=== PATIENT | female | born 1930 | race American Indian/Alaskan Native ===

== ENCOUNTER 2017-07-26 17:38 | Inpatient (IN) | payer MEDICARE ==
[2017-07-26 18:12] VITALS: BMI 27.8
--- NOTE | 2017-07-26 19:32 | C.PDOC ---
History Of Present Illness 87 year old female presents to the ED c/o weakness, feeling tired, SOB with exertion that has been going on for the past 2 days. Patient in the ED is speaking in full sentences. Patient denies fever, chills, nausea, vomit, diarrhea, recent travel, CP, palpitations. Time Seen by Provider: 07/26/17 19:32 Chief Complaint (Nursing): Weakness/Neurological Deficit History Per: Patient History/Exam Limitations: no limitations Onset/Duration Of Symptoms: Days Current Symptoms Are (Timing): Still Present Activity At Onset Of Symptoms: Exertional Activity Associated Symptoms Preceding Syncopal Episode: No Predromal Symptoms (Sudden Onset) Seizure Or Post-ictal Symptoms: None Fall Associated With With Symptoms: No Severity: None Recent travel outside of the [place]: No Additional History Per: Patient Past Medical History Reviewed: Historical Data, Nursing Documentation, Vital Signs Vital Signs: Last Vital Signs Temp 97.9 F 07/27/17 00:40 Pulse 82 07/27/17 00:40 Resp 20 07/27/17 00:40 BP 137/65 07/27/17 00:40 Pulse Ox 98 07/27/17 00:40 - Medical History PMH: HTN, Hypercholesterolemia Denies: Chronic Kidney Disease Surgical History: Coronary Stent - [facility] Procedures CORONAR ARTERIOGR-2 CATH (09/01/06) CORONARY ARTERY STENT INSERTION [id number] (09/01/06) ENDOSC POLYPECTOMY OF LG INTEST (12/07/12) INJECT ANTICOAGULANT (09/06/06) INSERTION OF ONE VASCULAR STENT (09/06/06) INSRT OF DRUG-ELUTING CORON ARTERY STENTS(S) (09/06/06) LEFT HEART CARDIAC CATH (08/29/06) LT HEART ANGIOCARDIOGRAM (08/29/06) PERC TRANSLUMINAL CORON ANGIOPLASTY PTCA OR CORON ATHERECT (09/06/06) PROCEDURE ON SINGLE VESSEL (09/06/06) Family History: States: No Known Family Hx - Social History Hx Tobacco Use: No Hx Alcohol Use: No Hx Substance Use: No - Immunization History Hx Tetanus Toxoid Vaccination: No Hx Influenza Vaccination: No Hx Pneumococcal Vaccination: No Review Of Systems Constitutional: Negative for: Fever, Chills Cardiovascular: Negative for: Chest Pain Respiratory: Positive for: SOB with Excertion Gastrointestinal: Negative for: Nausea, Vomiting, Abdominal Pain Neurological: Positive for: Weakness. Negative for: Headache, Dizziness Physical Exam - Physical Exam Appears: Non-toxic, No Acute Distress Skin: Warm, Dry Head: Normacephalic Eye(s): bilateral: Normal Inspection Nose: No Discharge Oral Mucosa: Moist Neck: Supple Chest: Symmetrical Cardiovascular: Rhythm Irregular (irregularly irregular), No Murmur Respiratory: No Rales, No Rhonchi, No Wheezing Gastrointestinal/Abdominal: Soft, No Tenderness, No Guarding, No Rebound Extremity: Normal ROM, No Tenderness, No Swelling Neurological/Psych: Oriented x3 Gait: Steady ED Course And Treatment - Laboratory Results Result Diagrams: 07/26/17 19:45 07/26/17 19:45 ECG: Interpreted By Me, Viewed By Me ECG Rhythm: Atrial Fibrillation, Nonspecific Changes O2 Sat by Pulse Oximetry: 99 (ON RA) Pulse Ox Interpretation: Normal - Radiology CXR: Interpreted by Me, Viewed By Me CXR Interpretation: No: Infiltrates, Fracture, Pnemothorax Progress Note: Plan: - VBG. - EKG. - Labs. - CXR. - UA Disposition Counseled Patient/Family Regarding: Studies Performed, Diagnosis - Disposition Disposition: HOSPITALIZED Disposition Time: 19:32 Condition: GOOD - Clinical Impression Clinical Impression: New onset a-fib, CHF (congestive heart failure) - Scribe Statement The provider has reviewed the documentation as recorded by the Scribe Chirag Valero All medical record entries made by the Scribe were at my direction and personally dictated by me. I have reviewed the chart and agree that the record accurately reflects my personal performance of the history, physical exam, medical decision making, and the department course for this patient. I have also personally directed, reviewed, and agree with the discharge instructions and disposition.
[2017-07-26 19:48] LABS: BASO % 0.4 % (0.0-2.0); EOS % 0.5 % (0.0-4.0); HEMOGLOBIN 11.1 g/dL (11.0-16.0); LYMPH # 2.8 K/uL (1.0-4.3); MEAN CELL VOLUME 83.9 fL (81.0-99.0); MEAN CORPUSCULAR HEMOGLOBIN 28.4 pg (27.0-31.0); MEAN CORPUSCULAR HGB CONC 33.8 g/dL (33.0-37.0); MEAN PLATELET VOLUME 8.4 fL (7.2-11.7); MONO # 1.1 K/uL (0.0-0.8); MONO % 12.1 % (0.0-10.0); RBC 3.9 Mil/uL (3.80-5.20); RED CELL DISTRIBUTION WIDTH 15.3 % (11.5-14.5); WHITE BLOOD COUNT 8.9 K/uL (4.8-10.8)
[2017-07-26 19:57] LABS: INR 1.1; PROTHROMBIN TIME 12.3 SECONDS (9.7-12.2)
[2017-07-26 20:00] LABS: CALCIUM 8.1 mg/dl (8.6-10.4); GFR AFRICAN-AMERICAN 37; GFR NON-AFRICAN AMERICAN 30
[2017-07-26 20:01] LABS: ALB/GLOB RATIO 0.8 (1.0-2.1); ALBUMIN 3.6 g/dL (3.5-5.0); ALT/SGPT < 6 U/L (9-52); AST/SGOT 37 U/L (14-36); BLOOD UREA NITROGEN 35 mg/dL (7-17)
[2017-07-26 20:01] LABS: VENOUS BLOOD GAS BASE EXCESS 0.3 mmol/L (0.0-2.0); VENOUS BLOOD GAS PCO2 42 mmHg (40-60); VENOUS BLOOD GAS PO2 20 mm/Hg (30-55); VENOUS BLOOD PH 7.39 (7.32-7.43)
[2017-07-26 20:09] LABS: B-TYPE NATRIURETIC PEPTIDE 5480 pg/mL (0-900)
[2017-07-26 22:57] VITALS: RESP 20
[2017-07-27 00:59] LABS: URINE BILIRUBIN NEGATIVE (NEGATIVE); URINE CLARITY Hazy (Clear); URINE COLOR YELLOW (YELLOW); URINE GLUCOSE (UA) Normal (Normal)
[2017-07-27 01:00] LABS: URINE BLOOD 1+ (NEGATIVE); URINE PROTEIN 1+ mg/dL (NEGATIVE)
[2017-07-27 01:02] LABS: SQUAMOUS EPITHIAL 11 /hpf (0-5); URINE BACTERIA MANY (<OCC); URINE LEUKOCYTE ESTERASE 3+ Leu/uL (Negative)
[2017-07-27] MEDS ORDERED: Pneumococcal 23-Valent Vaccine IM ONE (03:10)
[2017-07-27 03:17] LABS: URINE BILIRUBIN NEGATIVE (NEGATIVE); URINE CLARITY Turbid (Clear); URINE COLOR YELLOW (YELLOW); URINE GLUCOSE (UA) NEGATIVE (Normal)
[2017-07-27 03:18] LABS: SQUAMOUS EPITHIAL 3 /hpf (0-5); URINE BACTERIA MANY (<OCC); URINE BLOOD 1+ (NEGATIVE); URINE LEUKOCYTE ESTERASE 3+ Leu/uL (Negative); URINE PROTEIN 1+ mg/dL (NEGATIVE); URINE UROBILINOGEN Normal mg/dL (0.2-1.0)
[2017-07-27 06:36] LABS: ALB/GLOB RATIO 0.8 (1.0-2.1); ALBUMIN 3.3 g/dL (3.5-5.0); CALCIUM 8.8 mg/dl (8.6-10.4); CK-MB 1.36 ng/mL (0.0-3.38)
[2017-07-27 06:37] LABS: TROPONIN I 0.031 ng/mL (0.00-0.120)
--- NOTE | 2017-07-27 06:55 | RAD ---
Chest x-ray single frontal view History: Shortness of breath. Comparison: 08/29/2015 Findings: Biapical pleural thickening with upper lobe granulomatous changes. Small nodular density at the right lung apex. Patchy increased markings at the right infrahilar region. Venous congestion. Right hilar prominence. Calcification at the aortic knob. Degenerative changes in the spine shoulders. Impression: Biapical pleural thickening with upper lobe granulomatous changes. Small nodular density at the right lung apex. Patchy increased markings at the right infrahilar region. Venous congestion. Right hilar prominence. Calcification at the aortic knob.
[2017-07-27 07:23] LABS: HEMOGLOBIN 10.5 g/dL (11.0-16.0); MEAN CELL VOLUME 84.1 fL (81.0-99.0); MEAN CORPUSCULAR HEMOGLOBIN 28.2 pg (27.0-31.0); MEAN CORPUSCULAR HGB CONC 33.5 g/dL (33.0-37.0); MEAN PLATELET VOLUME 8.2 fL (7.2-11.7); RBC 3.72 Mil/uL (3.80-5.20); RED CELL DISTRIBUTION WIDTH 15.4 % (11.5-14.5); WHITE BLOOD COUNT 8.2 K/uL (4.8-10.8)
--- NOTE | 2017-07-27 09:35 | CP.PCM.HP ---
History of Present Illness - History of Present Illness History of Present Illness: This is an 87 y/o female well-known to me with history of HTN and CAD s/p PCI, who was seen in the office complaining of severe dizziness, weakness and fatigue that started 2 days prior to admission. She claims that she woke up 2 days ago with palpitations and severe dizziness. Since then she has not felt better and had also noted fatigue and weakness. In the office she was found to be with new-onset atrial fibrillation with rapid ventricular response hence she was advised to go to the ER for further evaluation and management. She denies any chest pain, orthopnea or edema. No abdominal pain, nausea, vomiting or bleeding noted anywhere. She denies any fever, cold or cough but does admit that she feels easily short of breath with minimal exertion. Present on Admission - Present on Admission Any Indicators Present on Admission: No Review of Systems - Constitutional Constitutional: Fatigue, Malaise, Weakness - EENT Eyes: As Per HPI Ears: As Per HPI Nose/Mouth/Throat: As Per HPI - Cardiovascular Cardiovascular: Dyspnea on Exertion, Irregular Heart Rhythm, Lightheadedness, Palpitations, Rapid Heart Rate - Respiratory Respiratory: Dyspnea on Exertion - Neurological Neurological: Dizziness, Weakness Past Patient History - Past Medical History & Family History Past Medical History?: Yes - Past Social History Smoking Status: Never Smoked Alcohol: None Drugs: Denies Home Situation {Lives}: Alone - CARDIAC Hx Cardiac Disorders: Yes (Hx of CAD, s/p PCI ) Hx Cardia Arrhythmia: Yes Hx Hypercholesterolemia: Yes Hx Hypertension: Yes - NEUROLOGICAL Hx Neurological Disorder: Yes Hx Dizziness: Yes Hx Transient Ischemic Attacks (TIA): Yes (Has known carotid artery stenosis) Other/Comment: history of carotid artery stenosis - HEENT Hx HEENT Problems: No - RENAL Hx Chronic Kidney Disease: No - ENDOCRINE/METABOLIC Hx Endocrine Disorders: Yes Hx Diabetes Mellitus Type 2: Yes - HEMATOLOGICAL/ONCOLOGICAL Hx Blood Disorders: No - INTEGUMENTARY Hx Dermatological Problems: No - MUSCULOSKELETAL/RHEUMATOLOGICAL Hx Musculoskeletal Disorders: No Hx Arthritis: Yes Hx Falls: No - GASTROINTESTINAL Hx Gastrointestinal Disorders: Yes Hx Constipation: Yes Hx Diarrhea: Yes Hx Nausea: Yes - GENITOURINARY/GYNECOLOGICAL Hx Genitourinary Disorders: Yes Hx Urinary Tract Infection: Yes - PSYCHIATRIC Hx Psychophysiologic Disorder: No Hx Substance Use: No - SURGICAL HISTORY Hx Cardiac Catheterization: Yes Hx Coronary Stent: Yes - ANESTHESIA Hx Anesthesia: Yes Hx Anesthesia Reactions: No Meds Allergies/Adverse Reactions: Allergies Allergy/AdvReac Type Severity Reaction Status Date / Time Penicillins Allergy Verified 08/29/15 19:11 Physical Exam - Constitutional Appears: No Acute Distress - Head Exam Head Exam: NORMAL INSPECTION - Eye Exam Eye Exam: Normal appearance, PERRL - ENT Exam ENT Exam: Mucous Membranes Moist, Normal Exam - Respiratory Exam Respiratory Exam: Clear to Auscultation Bilateral, NORMAL BREATHING PATTERN - Cardiovascular Exam Cardiovascular Exam: Irregular Rhythm, +S1, +S2 - GI/Abdominal Exam GI & Abdominal Exam: Normal Bowel Sounds, Soft - Rectal Exam Rectal Exam: Deferred - Extremities Exam Extremities exam: Positive for: normal inspection - Neurological Exam Neurological exam: Alert, Normal Gait, Oriented x3 - Psychiatric Exam Psychiatric exam: Normal Affect, Normal Mood - Skin Skin Exam: Dry, Intact, Normal Color, Warm Results - Vital Signs Recent Vital Signs: Last Vital Signs Temp 98.0 F 07/27/17 08:46 Pulse 75 07/27/17 08:46 Resp 20 07/27/17 08:46 BP 123/70 07/27/17 08:46 Pulse Ox 98 07/27/17 08:46 - Labs Result Diagrams: 07/27/17 04:00 07/27/17 03:00 Labs: Laboratory Results - last 24 hr 07/26/17 07/26/17 07/26/17 19:45 19:45 19:45 WBC 8.9 RBC 3.90 Hgb 11.1 Hct 32.7 L MCV 83.9 D MCH 28.4 MCHC 33.8 RDW 15.3 H Plt Count 340 D MPV 8.4 Neut % (Auto) 56.0 Lymph % (Auto) 31.0 [place] % (Auto) 12.1 H Eos % (Auto) 0.5 Baso % (Auto) 0.4 Neut # (Auto) 5.0 Lymph # (Auto) 2.8 [place] # (Auto) 1.1 H Eos # (Auto) 0.0 Baso # (Auto) 0.0 PT 12.3 H INR 1.1 APTT 27 pO2 VBG pH VBG pCO2 VBG HCO3 VBG Total CO2 VBG O2 Sat (Calc) VBG Base Excess VBG Potassium Glucose Lactate Sodium 140 Potassium 4.5 Chloride 104 Carbon Dioxide 21 L Anion Gap 20 BUN 35 H Creatinine 1.6 H Est GFR ( Amer) 37 Est GFR (Non-Af Amer) 30 POC Glucose (mg/dL) Random Glucose 112 H Calcium 8.1 L Total Bilirubin 1.1 AST 37 H ALT < 6 L D Alkaline Phosphatase 65 Total Creatine Kinase CK-MB (Mass) Troponin I 0.0320 NT-Pro-B Natriuret Pep 5480 H Total Protein 8.4 H Albumin 3.6 Globulin 4.8 H Albumin/Globulin Ratio 0.8 L TSH 3rd Generation 1.44 Venous Blood Potassium Urine Color Urine Clarity Urine pH Ur Specific [place] Urine Protein Urine Glucose (UA) Urine Ketones Urine Blood Urine Nitrate Urine Bilirubin Urine Urobilinogen Ur Leukocyte Esterase Urine WBC (Auto) Urine RBC (Auto) Ur Squamous Epith Cells Ur Transition Epith Cell Urine Bacteria Hyaline Casts 07/26/17 07/26/17 07/27/17 19:57 20:01 00:30 WBC RBC Hgb Hct MCV MCH MCHC RDW Plt Count MPV Neut % (Auto) Lymph % (Auto) [place] % (Auto) Eos % (Auto) Baso % (Auto) Neut # (Auto) Lymph # (Auto) [place] # (Auto) Eos # (Auto) Baso # (Auto) PT INR APTT pO2 20 L VBG pH 7.39 VBG pCO2 42 VBG HCO3 23.4 VBG Total CO2 26.7 VBG O2 Sat (Calc) 34.6 L VBG Base Excess 0.3 VBG Potassium 3.0 L Glucose 109 H Lactate 1.3 Sodium 142.0 Potassium Chloride 107.0 Carbon Dioxide Anion Gap BUN Creatinine Est GFR ( Amer) Est GFR (Non-Af Amer) POC Glucose (mg/dL) 110 Random Glucose Calcium Total Bilirubin AST ALT Alkaline Phosphatase Total Creatine Kinase CK-MB (Mass) Troponin I NT-Pro-B Natriuret Pep Total Protein Albumin Globulin Albumin/Globulin Ratio TSH 3rd Generation Venous Blood Potassium 3.0 L Urine Color Yellow Urine Clarity Hazy Urine pH 5.0 Ur Specific [place] 1.011 Urine Protein 1+ H Urine Glucose (UA) Normal Urine Ketones Negative Urine Blood 1+ H Urine Nitrate Negative Urine Bilirubin Negative Urine Urobilinogen 2.0 H Ur Leukocyte Esterase 3+ H Urine WBC (Auto) 394 H Urine RBC (Auto) 15 H Ur Squamous Epith Cells 11 H Ur Transition Epith Cell 1 Urine Bacteria Many H Hyaline Casts 11-20 H 07/27/17 07/27/17 07/27/17 02:38 03:00 04:00 WBC 8.2 RBC 3.72 L Hgb 10.5 L Hct 31.3 L MCV 84.1 MCH 28.2 MCHC 33.5 RDW 15.4 H Plt Count 276 MPV 8.2 Neut % (Auto) Lymph % (Auto) [place] % (Auto) Eos % (Auto) Baso % (Auto) Neut # (Auto) Lymph # (Auto) [place] # (Auto) Eos # (Auto) Baso # (Auto) PT INR APTT pO2 VBG pH VBG pCO2 VBG HCO3 VBG Total CO2 VBG O2 Sat (Calc) VBG Base Excess VBG Potassium Glucose Lactate Sodium 143 Potassium 3.5 L Chloride 105 Carbon Dioxide 24 Anion Gap 18 BUN 40 H Creatinine 1.5 H Est GFR ( Amer) 40 Est GFR (Non-Af Amer) 33 POC Glucose (mg/dL) Random Glucose 141 H Calcium 8.8 Total Bilirubin 0.4 AST 22 ALT 12 Alkaline Phosphatase 71 Total Creatine Kinase 31 CK-MB (Mass) 1.36 Troponin I 0.0310 NT-Pro-B Natriuret Pep Total Protein 7.4 Albumin 3.3 L Globulin 4.1 H Albumin/Globulin Ratio 0.8 L TSH 3rd Generation Venous Blood Potassium Urine Color Yellow Urine Clarity Turbid Urine pH 5.0 Ur Specific [place] 1.006 Urine Protein 1+ H Urine Glucose (UA) Negative Urine Ketones Negative Urine Blood 1+ H Urine Nitrate Positive H Urine Bilirubin Negative Urine Urobilinogen Normal Ur Leukocyte Esterase 3+ H Urine WBC (Auto) 2740 H Urine RBC (Auto) 8 H Ur Squamous Epith Cells 3 Ur Transition Epith Cell Urine Bacteria Many H Hyaline Casts 07/27/17 06:13 WBC RBC Hgb Hct MCV MCH MCHC RDW Plt Count MPV Neut % (Auto) Lymph % (Auto) [place] % (Auto) Eos % (Auto) Baso % (Auto) Neut # (Auto) Lymph # (Auto) [place] # (Auto) Eos # (Auto) Baso # (Auto) PT INR APTT pO2 VBG pH VBG pCO2 VBG HCO3 VBG Total CO2 VBG O2 Sat (Calc) VBG Base Excess VBG Potassium Glucose Lactate Sodium Potassium Chloride Carbon Dioxide Anion Gap BUN Creatinine Est GFR ( Amer) Est GFR (Non-Af Amer) POC Glucose (mg/dL) 121 H Random Glucose Calcium Total Bilirubin AST ALT Alkaline Phosphatase Total Creatine Kinase CK-MB (Mass) Troponin I NT-Pro-B Natriuret Pep Total Protein Albumin Globulin Albumin/Globulin Ratio TSH 3rd Generation Venous Blood Potassium Urine Color Urine Clarity Urine pH Ur Specific [place] Urine Protein Urine Glucose (UA) Urine Ketones Urine Blood Urine Nitrate Urine Bilirubin Urine Urobilinogen Ur Leukocyte Esterase Urine WBC (Auto) Urine RBC (Auto) Ur Squamous Epith Cells Ur Transition Epith Cell Urine Bacteria Hyaline Casts Assessment & Plan (1) New onset a-fib Assessment and Plan: R/O acute ischemic event. Will get serial kianna and EKG. -Will also try on low dose beta brady/Amiodarone for now and try to convert back to NSR. -thyroid profile also sent. -On telemetry to monitor HR and rhythm. Status: Acute (2) Hypertension Assessment and Plan: MOnitor VS. BP borderline at this time and hence BP meds on hold. Status: Chronic (3) UTI (urinary tract infection) Assessment and Plan: Urine c/s sent. Will start on antibiotic empirically Status: Acute (4) Prerenal azotemia Assessment and Plan: dehydration vs CHF. Clinically, patient does not seem to be in CHF. Will start on cautious fluid infusion. Status: Acute
[2017-07-27] MEDS: Pantoprazole 40 mg EC Tab PO SCH (09:39)
[2017-07-27] MEDS: Ciprofloxacin 200mg/100ml D5W 100 ML IVPB SCH ×2 (10:28→21:58)
[2017-07-27] MEDS: Potassium Ch 20mEq in D5-1/2NS 1,000 ML IV SCH (10:29)
[2017-07-27 11:36] LABS: CK-MB 0.85 ng/mL (0.0-3.38)
[2017-07-27 11:43] LABS: TROPONIN I 0.023 ng/mL (0.00-0.120)
--- NOTE | 2017-07-27 20:45 | CARD ---
APPROVED REPORT EKG Measurement Heart [id number] <Conclusion> Atrial fibrillation Nonspecific ST and T wave abnormality Abnormal ECG
[2017-07-28] MEDS: Potassium Ch 20mEq in D5-1/2NS 1,000 ML IV SCH ×2 (06:37→14:39)
[2017-07-28 07:48] LABS: BASO % 0.4 % (0.0-2.0); EOS # 0.2 K/uL (0.0-0.7); EOS % 2.2 % (0.0-4.0); HEMOGLOBIN 9.9 g/dL (11.0-16.0); LYMPH # 3.2 K/uL (1.0-4.3); LYMPH % 47.2 % (20.0-40.0); MEAN CELL VOLUME 83.7 fL (81.0-99.0); MEAN CORPUSCULAR HEMOGLOBIN 28.3 pg (27.0-31.0); MEAN CORPUSCULAR HGB CONC 33.9 g/dL (33.0-37.0); MEAN PLATELET VOLUME 8.3 fL (7.2-11.7); MONO # 0.9 K/uL (0.0-0.8); MONO % 12.4 % (0.0-10.0); NEUT # 2.6 K/uL (1.8-7.0); NEUT % 37.8 % (50.0-75.0); RBC 3.51 Mil/uL (3.80-5.20); RED CELL DISTRIBUTION WIDTH 15.4 % (11.5-14.5); WHITE BLOOD COUNT 6.8 K/uL (4.8-10.8)
[2017-07-28 08:01] LABS: ALB/GLOB RATIO 0.8 (1.0-2.1); ALBUMIN 3.1 g/dL (3.5-5.0); ALT/SGPT 10 U/L (9-52); AST/SGOT 21 U/L (14-36); BLOOD UREA NITROGEN 32 mg/dL (7-17); CALCIUM 8.6 mg/dl (8.6-10.4); GFR AFRICAN-AMERICAN > 60; GFR NON-AFRICAN AMERICAN 52
[2017-07-28] MEDS: Pantoprazole 40 mg EC Tab PO SCH (10:49)
[2017-07-28] MEDS: Ciprofloxacin 200mg/100ml D5W 100 ML IVPB SCH ×2 (10:49→21:34)
--- NOTE | 2017-07-28 18:34 | CP.PCM.PN ---
Subjective - Date & Time of Evaluation Date of Evaluation: 07/28/17 Time of Evaluation: 18:10 - Subjective Subjective: -patient feeling better. Ambulated with help of therapist and did well -Converted back to NSR early this morning. Still has runs of APC's noted intermittently -eating better, breathing much improved -no further dysuria Objective - Vital Signs/Intake and Output Vital Signs (last 24 hours): Temp Pulse Resp BP Pulse Ox 97.9 F 89 20 114/68 97 07/28/17 15:00 07/28/17 15:00 07/28/17 15:00 07/28/17 15:00 07/28/17 15:00 Intake and Output: 07/28/17 07/28/17 06:59 18:59 Intake Total 990 Balance 990 - Medications Medications: Current Medications Amiodarone HCl (Cordarone) 200 mg PO BID [facility] Dabigatran (Pradaxa) 75 mg PO BID [facility] Last Admin: 07/28/17 10:48 Dose: 75 mg Folic Acid (Folic Acid) 1 mg PO DAILY [facility] Last Admin: 07/28/17 10:49 Dose: 1 mg Ciprofloxacin (Cipro 200mg/100ml D5w) 100 mls @ 67 mls/hr IVPB Q12H [facility] PRN Reason: Protocol Last Admin: 07/28/17 10:49 Dose: 67 mls/hr Potassium Chloride/Dextrose/Sod Cl (Potassium Chl 20 Meq In D5-1/2ns) 1,000 mls @ 50 mls/hr IV .Q20H [facility] Last Admin: 07/28/17 14:39 Dose: 50 mls/hr Metoprolol Tartrate (Lopressor) 25 mg PO BID [facility] Last Admin: 07/28/17 10:48 Dose: 25 mg Pantoprazole Sodium (Protonix Ec Tab) 40 mg PO DAILY [facility] Last Admin: 07/28/17 10:49 Dose: 40 mg - Labs Labs: 07/28/17 07:32 07/28/17 07:32 PT 12.3 SECONDS (9.7-12.2) H 07/26/17 19:45 INR 1.1 07/26/17 19:45 APTT 27 SECONDS (21-34) 07/26/17 19:45 - Constitutional Appears: No Acute Distress - Head Exam Head Exam: NORMAL INSPECTION - Eye Exam Eye Exam: Normal appearance - Neck Exam Neck Exam: Normal Inspection - Respiratory Exam Respiratory Exam: Clear to Ausculation Bilateral, NORMAL BREATHING PATTERN - Cardiovascular Exam Cardiovascular Exam: REGULAR RHYTHM, +S1, +S2 - GI/Abdominal Exam GI & Abdominal Exam: Soft, Normal Bowel Sounds - Neurological Exam Neurological Exam: Alert, Awake, Oriented x3 - Psychiatric Exam Psychiatric exam: Normal Affect, Normal Mood - Skin Skin Exam: Dry, Intact, Normal Color, Warm Assessment and Plan (1) New onset a-fib Assessment & Plan: Converted back to NSR with occasional apc's after starting on amiodarone and metoprolol. Will continue telemetry and requested EKG tomorrow. Status: Acute (2) UTI (urinary tract infection) Assessment & Plan: improving on cipro IV Status: Acute (3) Prerenal azotemia Assessment & Plan: improving with hydration. creatinine back to normal. BUN still slightly elevated. Continue fluids for another day. Status: Acute (4) Hypokalemia Assessment & Plan: noted yesterday and started on KCl supplement. Normalized today. Status: Acute (5) Gait disturbance Assessment & Plan: Patient still unsteady on her feet. To continue physical therapy and will make arrangements to go to [facility] on discharge. Status: Acute (6) Hypertension Assessment & Plan: controlled Status: Chronic
[2017-07-29 01:01] VITALS: O2SAT 100
[2017-07-29 06:34] LABS: IRON 28 ug/dL (37-170)
[2017-07-29 06:43] LABS: % IRON SATURATION 11 (20-55); TOTAL IRON BINDING CAPACITY 266 ug/dL (250-450)
[2017-07-29 06:44] LABS: BLOOD UREA NITROGEN 21 mg/dL (7-17); CALCIUM 8.6 mg/dl (8.6-10.4); GFR AFRICAN-AMERICAN > 60; GFR NON-AFRICAN AMERICAN 59
[2017-07-29 07:09] LABS: FERRITIN 31.3 ng/mL
[2017-07-29 08:22] VITALS: TEMP 97.9
[2017-07-29] MEDS: Pantoprazole 40 mg EC Tab PO SCH (09:05)
[2017-07-29 09:08] VITALS: BP 154/65
[2017-07-29] MEDS: Ciprofloxacin 200mg/100ml D5W 100 ML IVPB SCH (09:17)
[2017-07-29] MEDS ORDERED: Ferric Sodium Gluconat Complex 62.5 mg/5 ml Vial IVPB SCH (10:45)
[2017-07-29 15:00] VITALS: PULSE 55
--- NOTE | 2017-07-29 17:30 | CP.PCM.PN ---
Objective - Vital Signs/Intake and Output Vital Signs (last 24 hours): Temp Pulse Resp BP Pulse Ox 97.9 F 55 L 20 154/65 H 100 07/29/17 08:21 07/29/17 12:00 07/29/17 08:21 07/29/17 09:06 07/29/17 08:21 Intake and Output: 07/29/17 07/29/17 06:59 18:59 Intake Total 400 875 Balance 400 875 - Labs Labs: 07/28/17 07:32 07/29/17 06:05 PT 12.3 SECONDS (9.7-12.2) H 07/26/17 19:45 INR 1.1 07/26/17 19:45 APTT 27 SECONDS (21-34) 07/26/17 19:45 Assessment and Plan - Assessment and Plan (Free Text) Assessment: 87 year old female admitted with new onset afib and UTI, seen and examined. Alert and orientedx3, denies any chest pain or distress. Discussed with DR Diaz , plan to discharge to [facility] this evening on present medications including cipro for UTI.
--- NOTE | 2017-07-29 17:41 | CP.PCM.DIS ---
Provider - Provider Date of Admission: 07/26/17 22:00 Attending physician: Yoly Tsai MD Primary care physician: Darrius Tsai Time Spent in preparation of Discharge (in minutes): 30 Diagnosis - Discharge Diagnosis (1) New onset a-fib Status: Resolved Comment: Patient to continue on Amiodarone and metoprolol (2) UTI (urinary tract infection) Status: Acute Comment: urine c/s- gram negative rods- no ID or sensitivity available yet but patient responded well to Cipro IV. To continue with Cipro for 5 more days. (3) Prerenal azotemia Status: Acute (4) Hypokalemia Status: Resolved Comment: No KCl supplement needed anymore. (5) Iron (Fe) deficiency anemia Status: Chronic Comment: Patient received one dose of IV Ferrlecit and started on Po iron. Will review recent endoscopy and colonoscopy. (6) Hypertension Status: Chronic Comment: Continue current meds. (7) Gait disturbance Status: Acute Priority: Medium Comment: Continue physical/occupational therapy at the [facility] Course - Lab Results Lab Results: Micro Results 07/27/17 01:10 Urine,Clean Catch Urine Culture - Preliminary Gram Negative Romeo Most Recent Lab Values WBC 6.8 K/uL (4.8-10.8) 07/28/17 07:32 RBC 3.51 Mil/uL (3.80-5.20) L 07/28/17 07:32 Hgb 9.9 g/dL (11.0-16.0) L 07/28/17 07:32 Hct 29.4 % (34.0-47.0) L 07/28/17 07:32 MCV 83.7 fL (81.0-99.0) 07/28/17 07:32 MCH 28.3 pg (27.0-31.0) 07/28/17 07:32 MCHC 33.9 g/dL (33.0-37.0) 07/28/17 07:32 RDW 15.4 % (11.5-14.5) H 07/28/17 07:32 Plt Count 292 K/uL (130-400) 07/28/17 07:32 MPV 8.3 fL (7.2-11.7) 07/28/17 07:32 Neut % (Auto) 37.8 % (50.0-75.0) L 07/28/17 07:32 Lymph % (Auto) 47.2 % (20.0-40.0) H 07/28/17 07:32 [place] % (Auto) 12.4 % (0.0-10.0) H 07/28/17 07:32 Eos % (Auto) 2.2 % (0.0-4.0) 07/28/17 07:32 Baso % (Auto) 0.4 % (0.0-2.0) 07/28/17 07:32 Neut # (Auto) 2.6 K/uL (1.8-7.0) 07/28/17 07:32 Lymph # (Auto) 3.2 K/uL (1.0-4.3) 07/28/17 07:32 [place] # (Auto) 0.9 K/uL (0.0-0.8) H 07/28/17 07:32 Eos # (Auto) 0.2 K/uL (0.0-0.7) 07/28/17 07:32 Baso # (Auto) 0.0 K/uL (0.0-0.2) 07/28/17 07:32 PT 12.3 SECONDS (9.7-12.2) H 07/26/17 19:45 INR 1.1 07/26/17 19:45 APTT 27 SECONDS (21-34) 07/26/17 19:45 pO2 20 mm/Hg (30-55) L 07/26/17 19:57 VBG pH 7.39 (7.32-7.43) 07/26/17 19:57 VBG pCO2 42 mmHg (40-60) 07/26/17 19:57 VBG HCO3 23.4 mmol/L 07/26/17 19:57 VBG Total CO2 26.7 mmol/L (22-28) 07/26/17 19:57 VBG O2 Sat (Calc) 34.6 % (40-65) L 07/26/17 19:57 VBG Base Excess 0.3 mmol/L (0.0-2.0) 07/26/17 19:57 VBG Potassium 3.0 mmol/L (3.6-5.2) L 07/26/17 19:57 Sodium 142.0 mmol/l (132-148) 07/26/17 19:57 Chloride 107.0 mmol/L (98-107) 07/26/17 19:57 Glucose 109 mg/dl (65-105) H 07/26/17 19:57 Lactate 1.3 mmol/L (0.7-2.1) 07/26/17 19:57 Sodium 143 mmol/L (132-148) 07/29/17 06:05 Potassium 3.8 mmol/L (3.6-5.2) 07/29/17 06:05 Chloride 106 mmol/L (98-107) 07/29/17 06:05 Carbon Dioxide 24 mmol/L (22-30) 07/29/17 06:05 Anion Gap 16 (10-20) 07/29/17 06:05 BUN 21 mg/dL (7-17) H 07/29/17 06:05 Creatinine 0.9 mg/dL (0.7-1.2) 07/29/17 06:05 Est GFR ( Amer) > 60 07/29/17 06:05 Est GFR (Non-Af Amer) 59 07/29/17 06:05 POC Glucose (mg/dL) 106 mg/dL (65-110) 07/29/17 11:35 Random Glucose 108 mg/dL (65-105) H 07/29/17 06:05 Calcium 8.6 mg/dl (8.6-10.4) 07/29/17 06:05 Iron 28 ug/dL (37-170) L 07/29/17 06:05 TIBC 266 ug/dL (250-450) 07/29/17 06:05 % Saturation 11 (20-55) L 07/29/17 06:05 Ferritin 31.3 ng/mL 07/29/17 06:05 Total Bilirubin 0.4 mg/dL (0.2-1.3) 07/28/17 07:32 AST 21 U/L (14-36) 07/28/17 07:32 ALT 10 U/L (9-52) 07/28/17 07:32 Alkaline Phosphatase 60 U/L (38-126) 07/28/17 07:32 Total Creatine Kinase 36 U/L (30-135) 07/27/17 10:56 CK-MB (Mass) 0.85 ng/mL (0.0-3.38) 07/27/17 10:56 Troponin I 0.0230 ng/mL (0.00-0.120) 07/27/17 10:56 NT-Pro-B Natriuret Pep 5480 pg/mL (0-900) H 07/26/17 19:45 Total Protein 7.1 g/dL (6.3-8.3) 07/28/17 07:32 Albumin 3.1 g/dL (3.5-5.0) L 07/28/17 07:32 Globulin 4.0 gm/dL (2.2-3.9) H 07/28/17 07:32 Albumin/Globulin Ratio 0.8 (1.0-2.1) L 07/28/17 07:32 TSH 3rd Generation 1.44 mIU/L (0.46-4.68) 07/26/17 19:45 Venous Blood Potassium 3.0 mmol/L (3.6-5.2) L 07/26/17 19:57 Urine Color Yellow (YELLOW) 07/27/17 02:38 Urine Clarity Turbid (Clear) 07/27/17 02:38 Urine pH 5.0 (5.0-8.0) 07/27/17 02:38 Ur Specific Scott 1.006 (1.003-1.030) 07/27/17 02:38 Urine Protein 1+ mg/dL (NEGATIVE) H 07/27/17 02:38 Urine Glucose (UA) Negative mg/dL (Normal) 07/27/17 02:38 Urine Ketones Negative mg/dL (NEGATIVE) 07/27/17 02:38 Urine Blood 1+ (NEGATIVE) H 07/27/17 02:38 Urine Nitrate Positive (NEGATIVE) H 07/27/17 02:38 Urine Bilirubin Negative (NEGATIVE) 07/27/17 02:38 Urine Urobilinogen Normal mg/dL (0.2-1.0) 07/27/17 02:38 Ur Leukocyte Esterase 3+ Radha/uL (Negative) H 07/27/17 02:38 Urine WBC (Auto) 2740 /hpf (0-5) H 07/27/17 02:38 Urine RBC (Auto) 8 /hpf (0-3) H 07/27/17 02:38 Ur Squamous Epith Cells 3 /hpf (0-5) 07/27/17 02:38 Ur Transition Epith Cell 1 /hpf (0-3) 07/27/17 00:30 Urine Bacteria Many (<OCC) H 07/27/17 02:38 Hyaline Casts 11-20 /lpf (0-2) H 07/27/17 00:30 - Hospital Course Hospital Course: Thisis an 87 y/o female hypertensive with known history of CAD s/p PCI who was admitted because of weakness and lightheadedness. She was found to have developed paroxysmal atrial fib with rvr, hypokalemia and elevated BUN and creatinine hence she was given IV fluid and KCl supplement. She was also found to have UTI and started on Cipro IV. She was admitted to telemetry and was started on Metoprolol and Amiodarone. She converted to NSR on the 3rd hospital day and remained in regular rhythm for more than 24 hours. Patient felt much better and was subsequently discharged improved to [facility] for further recuperation. Note: This patient was discharged by the nurse practitioner and sent to [facility] before I was able to see her on rounds. I spoke to the nurse practitioner earlier and specifically told her to schedule transfer after 5 pm when I would have seen the patient on rounds. The [facility] discharged the patient on inappropriate medications some of which I have already discontinued and changed to another kind. Spoke to [facility] about it and I was told that the watch caser was there when the patient was discharged and picked up by the ambulance. My instruction to the [facility] that the arrangement to transfer the patient be made after 5 PM seems to have never been relayed to anyone on the floor. Discharge Exam - Head Exam Head Exam: NORMAL INSPECTION Discharge Plan - Discharge Medications Prescriptions: Ciprofloxacin [Cipro] 500 mg PO BID 7 Days tab - Follow Up Plan Condition: GOOD Disposition: REHAB FACILITY/REHAB UNIT Instructions: Ciprofloxacin (Systemic), Heart Healthy Diet, Atrial Fibrillation (DC), Hypokalemia (DC), Heart Failure (DC), Urinary Tract Infection in Women (DC), Weakness (GEN)
--- NOTE | 2017-07-29 21:18 | CARD ---
APPROVED REPORT EKG Measurement Heart [id number] <Conclusion> Sinus bradycardia Otherwise normal ECG
--- NOTE | 2017-07-31 11:20 | CARD ---
APPROVED REPORT EXAM: Two-dimensional and M-mode echocardiogram with Doppler and color Doppler. Other Information Quality : GoodRhythm : INDICATION Atrial Fibrillation Congestive Heart Failure RISK FACTORS Hypertension 2D DIMENSIONS IVSd0.9 (0.7-1.1cm)LVDd4.7 (3.9-5.9cm) PWd1.0 (0.7-1.1cm)LVDs3.3 (2.5-4.0cm) FS (%) 30.4 %LVEF (%)57.7 (>50%) M-Mode DIMENSIONS Left Atrium (MM)4.21 (2.5-4.0cm)Aortic Root2.83 (2.2-3.7cm) Aortic Cusp Exc.1.53 (1.5-2.0cm) Mitral Valve MV E [id number]/sMV A Ftaamzpi729.4cm/sE/A ratio1.2 TDI E/Lateral E'0.0E/Medial E'0.0 Tricuspid Valve TR Peak [id number]/sTR Peak Gr.33mmHg <Conclusion> Left ventricle: thickness: normal; size: normal; overall ejection fraction: 55%: diastolic filling pressures: elevated Mitral valve: annulus: MAC: leaflets: calcified thickening: excursion: normal; no significant trans-mitral gradient: moderate incompetence: left atrium: dilated Aortic valve: leaflets: mild calcific thickening: excursion: normal; no significant trans-aortic gradient: No significant incompetence: aortic root: normal Right sided Structures: Pulmonary valve: normal; no significant incompetence; Tricuspid valve: normal; mild incompetence: Intra-cardiac hemodynamics: pulmonary systolic pressures: 36mmHg; central venous pressures: normal No pericardial effusion
--- NOTE | 2017-07-31 21:32 | CARD ---
APPROVED REPORT EKG Measurement Heart [id number] <Conclusion> Atrial fibrillation Nonspecific ST and T wave abnormality Abnormal ECG
== END 2017-07-29 16:39 | DRG 309 ==
LOC: C.ER 17:38 → C.9E 22:00 → C.6T 23:26
PROVIDERS: ADMIT Internal Medicine Cardiovascular Disease; ATTEND Internal Medicine Cardiovascular Disease
DX: I48.0 Paroxysmal atrial fibrillation (principal); N39.0 Urinary tract infection, site not specified; D50.9 Iron deficiency anemia, unspecified; E11.9 Type 2 diabetes mellitus without complications; E86.0 Dehydration; E78.00 Pure hypercholesterolemia, unspecified; E87.6 Hypokalemia; I11.0 Hypertensive heart disease with heart failure; I25.10 Atherosclerotic heart disease of native coronary artery without angina pectoris; I50.9 Heart failure, unspecified; Z95.5 Presence of coronary angioplasty implant and graft; Z86.73 Personal history of transient ischemic attack (TIA), and cerebral infarction without residual deficits; I65.29 Occlusion and stenosis of unspecified carotid artery; R79.89 Other specified abnormal findings of blood chemistry; R26.81 Unsteadiness on feet